=== PATIENT | male | born 1960 | race Hispanic/Latino ===

== ENCOUNTER 2017-02-04 19:56 | Emergency (ER) | payer OTHER ==
[~2017-02-04] VITALS: Ht 162.6 cm; Wt 75.0 kg
[~2017-02-04 19:56] MED LIST: BUPR1FIL3 SL; HYDR50CA PO; OMEP20CA11 PO
[2017-02-04 20:04] VITALS: BP 123/74; PULSE 86; RESP 16; O2SAT 99
--- NOTE | 2017-02-04 21:52 | ED.REPORT ---
HPI-Rash / Abscess Date of Service Feb 04, 2017 ED Provider: Magno Nice MD The pt is a 56 y/o male w/ a hx of IV drug use, hepatitis C, and asthma presenting to the ED due to a L forearm bug bite. He reports the area feeling warm, hurting, and now becoming numb. He denies any recent drug use. Nursing Notes Stated Complaint: BUG BITE LEFT ARM Chief Complaint: Bug bite left arm Nursing Notes Reviewed: Yes Allergies: Coded Allergies: iodine (Verified Allergy, Severe, HIVES, 11/25/14) Scheduled Buprenorphine HCl/Naloxone HCl (Suboxone 8 mg-2 mg Sl Film) 1 Each Film 1 EACH SL BID Omeprazole (Omeprazole) 20 Mg Capsule.dr 20 MG PO DAILY Scheduled PRN Hydroxyzine Pamoate (Vistaril) 50 Mg Capsule 50 MG PO TID PRN PRN For Anxiety General Time Seen by MD: 21:50 Chief Complaint Other (Bug bite left arm ) Hx Obtained From: Patient Arrived By: Walk-in Onset Occurred: Just prior to arrival Symptom Duration: Since onset Recent Healthcare: No recent hospitalization, Recent doctor visit Similar Sx Previous: Yes Past Medical History Past Medical History 1. History of IV drug use, polysubstance abuse including methamphetamine, heroin, cocaine and marijuana. The patient has been sober for over 1 year - on Suboxone 2. History of hepatitis C. 3. History of pancreatitis. 4. Chronic pain. 5. Anxiety 6. MRSA 7. TB as a child 8. Asthma Past Surgical History stomach, pancreas, hand fx Family History Noncontributory Smoking History Former Smoker Social History The patient has been sober for 1 year Alcohol Use: Denies alcohol use Drug Use: In recovery, THC Other Social History: Good social support, Local resident Occupation stays with daughter. No work or school Ambulatory Status Independent Review of Systems L forearm bug bite that has felt warm, causing him pain, and now becoming numb; Complete sys rev & neg: except as marked. Physical Exam Initial Vital Signs Vital Signs (First) Date Time Temp Pulse Resp B/P Pulse Ox O2 Delivery O2 Flow Rate FiO2 02/04/17 20:04 36.8 86 16 123/74 99 Room Air Initial VS: Reviewed, Vital signs normal Head / Eyes: Atraumatic, Normocephalic, PERRL ENT: Mucous membranes moist, Conjunctiva normal, No scleral icterus Neck: Supple, Non-tender, Full range of motion Respiratory: Breath sounds normal, Clear to auscultation, No respiratory distress Cardiovascular: Regular rate & rhythm, Heart sounds normal, Intact distal pulses Neurologic: Alert, Oriented, Nonfocal Psychiatric: Mood/affect normal, Behavior normal, Normal thought content General/Constitutional: Awake, Alert Skin: Warm, Dry, Intact 2x3 cm swollen area on L proximal forearm, w/o fluctuance, with mild erythema Procedures Needle aspiration was attempted and no purulent materal was found. Area was cleaned w/ alcohol. Incision & Drainage Abscess Location of Abscess: L proximal forearm Re-Eval/Medical Decision Med Decision/Clinical Course 56-year-old male who has developed a swollen hot spot on his left forearm. He has a history of IV drug use but it has been many years. He is my patient [facility] and is followed very closely in this regard, so I do not suspect a relapse. There was no purulent material on attempted needle aspiration. He will be placed on trimethoprim sulfamethoxazole DS and will follow up with me or with his primary doctor as needed. Source of Hx: Old records Counseled Regarding: Diagnosis, Need for follow-up, When/why to return to ED Discharge & Departure Impression: Primary Impression: Cellulitis of left forearm Additional Impression: Opioid dependence on agonist therapy Disposition: Home Discharge Condition All VS Reviewed: Yes Condition: Stable Patient Instructions: Cellulitis (ED) Additional Instructions: This is probably an infected insect bite, but maybe not a spider. Warm compresses. Trimethoprim sulfamethoxazole DS 1 by mouth twice a day, #20 dispensed. Follow up as planned with me at [facility]. See your regular doctor if this worsens prior to that visit. Referrals: [facility] (PCP) Ivanna Toribio Scribe Attestation Portions of this note were transcribed by Eh Mata. I, Dr. Nice personally performed the history, physical exam and medical decision-making; I reviewed and confirmed the accuracy of the information in the transcribed note. copies to: Ivanna Toribio Howard L MD Feb 04, 2017 21:52 Eh Mata Feb 04, 2017 22:11
[2017-02-04 22:32] VITALS: BP 121/60; PULSE 62; RESP 18; O2SAT 98
[2017-02-05] MEDS ORDERED: _Trimethoprim-Sulfa 160/800 mg Tablet PO SCH (08:30)
== END 2017-02-04 22:32 | disposition home or self-care (01) ==
LOC: EDBD 19:56 → EDUNIT# 19:56 → SED 19:56
DX: L03.114 Cellulitis of left upper limb (principal); W57.XXXA Bitten or stung by nonvenomous insect and other nonvenomous arthropods, initial encounter; Y93.89 Activity, other specified; Y92.89 Other specified places as the place of occurrence of the external cause; Y99.8 Other external cause status; F11.20 Opioid dependence, uncomplicated; F41.9 Anxiety disorder, unspecified; J45.909 Unspecified asthma, uncomplicated; Z86.14 Personal history of Methicillin resistant Staphylococcus aureus infection; Z98.890 Other specified postprocedural states; Z87.891 Personal history of nicotine dependence; Z88.8 Allergy status to other drugs, medicaments and biological substances